=== PATIENT | female | born 1985 | race Two or more races ===

== ENCOUNTER 2023-09-07 13:38 | Emergency (ER) | payer OTHER ==
[2023-09-07 13:47] VITALS: BMI 25.9
[2023-09-07 15:13] LABS: BASO % 0.4 % (0-2.0); EOS % 1.2 % (0-4.5); HEMATOCRIT 40.6 % (32.4-45.2); LYMPH % 28.7 % (8-40); MCH 31.2 pg (25.7-33.7); MCHC 34.4 g/dl (32.0-36.0); MEAN CELL VOLUME 90.6 fl (80-96); MEAN PLT VOLUME 7.9 fl (7.5-11.1); MONO % 7.1 % (3.8-10.2); NEUT % 62.6 % (42.8-82.8); PLATELET COUNT 299 10^3/uL (134-434); RBC 4.48 M/mm3 (3.60-5.2); RDW 12.6 % (11.6-15.6); WHITE BLOOD COUNT 8.5 K/mm3 (4.0-10.0)
[2023-09-07 15:21] LABS: INR 1.03 (0.83-1.09); PROTHROMBIN TIME (PATIENT) 11.8 SEC (9.7-13.0)
[2023-09-07 15:24] LABS: ACTIVATED PTT 29.6 SECONDS (25.2-36.5)
[2023-09-07 15:46] LABS: BLOOD UREA NITROGEN 7.5 mg/dL (7-18); CALCIUM 9.7 mg/dL (8.5-10.1)
[2023-09-07 15:49] LABS: CREATININE 0.8 mg/dL (0.55-1.3)
[2023-09-07 15:51] LABS: BILIRUBIN,TOTAL 0.6 mg/dL (0.2-1); TOT PROT 7.5 g/dl (6.4-8.2)
[2023-09-07 17:50] VITALS: BP 104/66; PULSE 69; RESP 18; TEMP 98.7
== END 2023-09-07 18:40 | disposition home or self-care (01) ==
LOC: JER 13:38
DX: I80.02 Phlebitis and thrombophlebitis of superficial vessels of left lower extremity (principal)
CPT/HCPCS: 36415; 80053; 85025; 85610; 85730; 93971-TC; 99284-25